=== PATIENT | male | born 1985 | race Two or more races ===

== ENCOUNTER 2020-07-25 03:47 | Emergency (ER) | payer SELFPAY ==
[~2020-07-25] VITALS: Ht 167.6 cm; Wt 70.0 kg
[2020-07-25 03:49] VITALS: BP 134/78
[2020-07-25] MEDS ORDERED: PROPARACAINE OPHTH 0.5%, 15ML ONE (04:03)
[2020-07-25] MEDS ORDERED: FLUORESCEIN OPHTHALMIC 1 MG STRIP ONE (04:05)
--- NOTE | 2020-07-25 04:51 | NUR ---
Patient/Caregiver given discharge instructions and they have confirmed that they understand the instructions. Patient ambulatory with steady gait.
== END 2020-07-25 04:54 | disposition home or self-care (01) ==
LOC: ED 04:30
DX: H10.021 Other mucopurulent conjunctivitis, right eye (principal); F17.210 Nicotine dependence, cigarettes, uncomplicated
CPT/HCPCS: 99283; 99406